=== PATIENT | female | born 1955 | race Caucasian/White ===

== ENCOUNTER 2024-03-06 15:17 | Inpatient (IN) | payer MEDICARE, OTHER ==
[~2024-03-06] VITALS: Ht 157.5 cm; Wt 71.7 kg
[2024-03-06 16:02] LABS: BASOPHILS # (AUTO) 0.2 K/uL (0.0-0.2); BASOPHILS % (AUTO) 1.2 % (0.0-2.0); EOSINOPHILS # (AUTO) 0.7 K/uL (0.0-0.7); EOSINOPHILS % (AUTO) 5.5 % (0.0-6.0); HEMATOCRIT 40 % (33-45); HEMOGLOBIN 13.3 g/dL (11.5-14.8); LYMPHOCYTES # (AUTO) 2.6 K/uL (0.8-4.8); LYMPHOCYTES % (AUTO) 19.7 % (20.0-44.0); MEAN CORPUSCULAR HEMOGLOBIN 30 PG (26.0-33.0); MEAN CORPUSCULAR HGB CONC 33 g/dl (31.0-36.0); MEAN CORPUSCULAR VOLUME 91 fL (82-100); MONOCYTES # (AUTO) 0.8 K/uL (0.1-1.30); MONOCYTES % (AUTO) 6.2 % (2.0-12.0); NEUTROPHILS # (AUTO) 8.7 K/uL (1.8-8.9); NEUTROPHILS % (AUTO) 67.4 % (43.0-81.0); PLATELET COUNT (AUTO) 438 K/uL (150-450); RED CELL DISTRIBUTION WIDTH 14.5 % (11.5-15.0)
[2024-03-06 16:18] LABS: ALANINE AMINOTRANSFERASE 19 U/L (12-78); ALBUMIN 3.2 g/dL (3.4-5.0); ALKALINE PHOSPHATASE 86 U/L (46-116); ASPARTATE AMINOTRANSFERASE 9 U/L (15-37); BILIRUBIN,DIRECT 0.1 mg/dL (0.0-0.2); BILIRUBIN,TOTAL 0.3 mg/dL (0.2-1.0); CARBON DIOXIDE 29 mmol/L (21-32); CHLORIDE 105 mmol/L (98-107); CREATININE 0.7 mg/dL (0.6-1.3); GLUCOSE 128 mg/dL (74-106); POTASSIUM 4.1 mmol/L (3.5-5.1); SODIUM SERUM 140 mmol/L (136-145); UREA NITROGEN, BLOOD 12 mg/dL (7-18)
[2024-03-06 16:19] LABS: INR 1.03 (0.91-1.10); PARTIAL THROMBOPLASTIN TIME 28.4 SEC (24.3-34.3); PROTHROMBIN TIME 10.9 SECS (9.2-11.1)
[2024-03-06 16:25] LABS: LACTIC ACID 2.2 mmol/L (0.4-2.0)
[2024-03-06] MEDS: IV NS 0.9% 1,000 ML BAG IV ONE (17:00)
[2024-03-06] MEDS ORDERED: INSU100I40 SQ ×2 (17:17)
[2024-03-06] MEDS ORDERED: BISA10SU11 RC (17:17)
[2024-03-06] MEDS ORDERED: PRAV20TA4 PO (17:17)
[2024-03-06] MEDS ORDERED: OXYC5TAB3 PO (17:17)
[2024-03-06] MEDS ORDERED: HYDR-4076 PO (17:17)
[2024-03-06] MEDS ORDERED: ACET-2030 PO (17:17)
[2024-03-06] MEDS ORDERED: BACL10TA PO (17:17)
[2024-03-06] MEDS ORDERED: CRAN250C PO (17:17)
[2024-03-06] MEDS ORDERED: CRAN500T3 PO (17:17)
[2024-03-06] MEDS ORDERED: LEVO100T PO (17:17)
[2024-03-06] MEDS ORDERED: MAGN400O6 PO (17:17)
[2024-03-06] MEDS ORDERED: DIPH28.34 TP (17:17)
[2024-03-06] MEDS ORDERED: DIPH25TA62 PO (17:17)
[2024-03-06] MEDS ORDERED: LEVO50TA PO (17:17)
[2024-03-06] MEDS ORDERED: ACET-868 PO (17:17)
[2024-03-06] MEDS ORDERED: METF-440 PO (17:17)
[2024-03-06] MEDS ORDERED: RILU50TA14 PO (17:17)
[2024-03-06] MEDS ORDERED: POLY17PO4 PO (17:17)
[2024-03-06] MEDS ORDERED: MELA3TAB41 PO (17:17)
[2024-03-06] MEDS ORDERED: DOCU100T2 PO (17:17)
[2024-03-06] MEDS ORDERED: CIPR500T5 PO (17:17)
[2024-03-06] MEDS ORDERED: LIDO30AD10 TP (17:17)
[2024-03-06] MEDS ORDERED: MIRT-90 PO (17:17)
[2024-03-06] MEDS ORDERED: DEXTROSE 50%-WATER 50 ML DISP.SYRIN IV PRN (17:30)
[2024-03-06] MEDS ORDERED: ONDANSETRON HCL/PF 4 MG/2 ML VIAL IVP PRN (17:30)
[2024-03-06] MEDS ORDERED: ACETAMINOPHEN 325 MG TABLET PO PRN (17:30)
[2024-03-06] MEDS ORDERED: hydrALAZINE HCL IV 20 MG VIAL IV PRN (17:30)
[2024-03-06] MEDS ORDERED: CEFEPIME 1 GM VIAL ONE ×3 (18:51→19:39)
[2024-03-06 19:03] LABS: APPEARANCE,URINE TURBID (CLEAR); BILIRUBIN,URINE NEGATIVE (NEGATIVE); BLOOD, URINE 3+ Ery/uL (NEGATIVE); COLOR,URINE YELLOW (YELLOW); KETONES,URINE NEGATIVE (NEGATIVE); LEUKOCYTE ESTERASE ,URINE 1+ (NEGATIVE); NITRITE, URINE NEGATIVE (NEGATIVE); PROTEIN,URINE 2+ mg/dl (NEGATIVE); UGLUCOSE NEGATIVE (NEGATIVE)
[2024-03-06 19:10] LABS: ADD URINE CULTURE YES; BACTERIA,URINE Few /HPF (None Seen); CALCIUM OXALATE CRYSTALS,UR Few /HPF (None Seen); RBC,URINE 21-50 /HPF (0-2); WBC,URINE 81-100 /HPF (0-3)
[2024-03-06] MEDS: CEFEPIME 1 GM in IV D5W 50 ML IV ONE (19:30)
[2024-03-06] MEDS: IV NS 0.9% 1,000 ML IV SCH (21:11)
[2024-03-06] MEDS: HEPARIN SODIUM, PORCINE 5000 UNITS/1 ML VIAL SQ SCH (21:31)
[2024-03-06] MEDS: BLOOD SUGAR DIAGNOSTIC 1 EACH STRIP VI SCH (21:38)
[2024-03-06] MEDS: ATORVASTATIN 10 MG TABLET PO SCH (22:49)
[2024-03-06] MEDS: *INSULIN REGULAR(HUMULIN R)HUM 100 UNIT/ML VIAL SQ PRN (23:06)
[2024-03-07 04:00] VITALS: BP 138/74; TEMP 97; O2SAT 97
[2024-03-07] MEDS: INSULIN REGULAR, HUMAN 100 UNIT/ML 3 ML VIAL SQ PRN (05:52)
[2024-03-07 07:13] LABS: BASOPHILS % (AUTO) 0.2 % (0.0-2.0); EOSINOPHILS # (AUTO) 0.6 K/uL (0.0-0.7); EOSINOPHILS % (AUTO) 6.7 % (0.0-6.0); HEMATOCRIT 36 % (33-45); HEMOGLOBIN 12.1 g/dL (11.5-14.8); LYMPHOCYTES # (AUTO) 2.3 K/uL (0.8-4.8); LYMPHOCYTES % (AUTO) 26.5 % (20.0-44.0); MEAN CORPUSCULAR HEMOGLOBIN 30 PG (26.0-33.0); MEAN CORPUSCULAR HGB CONC 33 g/dl (31.0-36.0); MEAN CORPUSCULAR VOLUME 90 fL (82-100); MONOCYTES # (AUTO) 0.5 K/uL (0.1-1.30); MONOCYTES % (AUTO) 6.1 % (2.0-12.0); NEUTROPHILS # (AUTO) 5.2 K/uL (1.8-8.9); NEUTROPHILS % (AUTO) 60.5 % (43.0-81.0); PLATELET COUNT (AUTO) 366 K/uL (150-450); RED BLOOD CELL COUNT(AUTO) 4.02 MIL/uL (4.0-5.2); RED CELL DISTRIBUTION WIDTH 14.7 % (11.5-15.0); WHITE BLOOD COUNT (AUTO) 8.6 K/uL (4.3-11.0)
[2024-03-07] MEDS: LEVOTHYROXINE SODIUM 100 MCG TABLET PO SCH (07:29)
[2024-03-07 07:37] LABS: ALBUMIN 2.8 g/dL (3.4-5.0); BILIRUBIN,TOTAL 0.3 mg/dL (0.2-1.0); CALCIUM, SERUM 8.7 mg/dL (8.5-10.1); CREATININE 0.4 mg/dL (0.6-1.3); MAGNESIUM 1.9 mg/dL (1.8-2.4); PHOSPHORUS 3.5 mg/dL (2.5-4.9); POTASSIUM 3.3 mmol/L (3.5-5.1); TOTAL PROTEIN, SERUM 5.8 g/dL (6.4-8.2)
[2024-03-07] MEDS: CEFTRIAXONE 1 G in IV D5W 50 ML IV SCH (09:15)
[2024-03-07] MEDS: POLYETHYLENE GLYCOL 3350 17 GM POWD.PACK PO SCH (09:47)
[2024-03-07] MEDS: DOCUSATE SODIUM LIQ 100 MG/10 ML UDC PO SCH (09:47)
[2024-03-07] MEDS: BACLOFEN (10 MG) 10 MG TABLET PO SCH (09:48)
[2024-03-07] MEDS: POTASSIUM CHLORIDE 20 MEQ TAB.PRT.SR PO ONE (12:41)
[2024-03-08] MEDS: MORPHINE SULFATE INJ 2 MG/ML DISP.SYRIN IV PRN
[2024-03-08 08:00] VITALS: BP 128/80; TEMP 97.7; O2SAT 97
[2024-03-08] MEDS: IV NS 0.9% 250 ML IV PRN (09:37)
[2024-03-08] MEDS: LIDOCAINE 5% (PATCH) 1 EA PATCH TP SCH (10:46)
[2024-03-08 20:00] VITALS: BP 134/97; TEMP 98; O2SAT 97
[2024-03-09 04:00] VITALS: BP 134/81; TEMP 98.2; O2SAT 95
[2024-03-09 10:05] LABS: CALCIUM, SERUM 8.9 mg/dL (8.5-10.1); CREATININE 0.6 mg/dL (0.6-1.3); POTASSIUM 3.3 mmol/L (3.5-5.1)
[2024-03-09 12:00] VITALS: BP 134/81; TEMP 98.2; O2SAT 95
[2024-03-09] MEDS: POTASSIUM CHLORIDE 20 MEQ POWDER PACKET PO ONE (12:34)
[2024-03-09] MEDS ORDERED: POTASSIUM CHLORIDE 20 MEQ TAB.PRT.SR PO ONE (13:00)
[2024-03-09] MEDS: diphenhydrAMINE HCL/ZINC ACET CREAM 28.3 GM TUBE TP PRN (15:07)
[2024-03-09 20:00] VITALS: BP 143/96; TEMP 99.2; O2SAT 99
[2024-03-10 04:00] VITALS: BP 127/85; TEMP 98.8; O2SAT 96
[2024-03-10] MEDS: CEFTRIAXONE 1 G in IV D5W 50 ML IV STA (08:33)
[2024-03-10 09:58] LABS: CALCIUM, SERUM 9.1 mg/dL (8.5-10.1); POTASSIUM 3.5 mmol/L (3.5-5.1)
[2024-03-10 10:04] LABS: CREATININE 0.6 mg/dL (0.6-1.3)
== END 2024-03-10 14:20 | DRG 698 ==
LOC: ER 15:20 → MEDSG1 20:01
PROVIDERS: ADMIT Internal Medicine; ATTEND Internal Medicine
DX: T83.511A Infection and inflammatory reaction due to indwelling urethral catheter, initial encounter (principal); G93.41 Metabolic encephalopathy; R53.2 Functional quadriplegia; E44.1 Mild protein-calorie malnutrition; E87.20 Acidosis, unspecified; N39.0 Urinary tract infection, site not specified; Z88.5 Allergy status to narcotic agent; E11.9 Type 2 diabetes mellitus without complications; I10 Essential (primary) hypertension; E03.9 Hypothyroidism, unspecified; E78.5 Hyperlipidemia, unspecified; E88.09 Other disorders of plasma-protein metabolism, not elsewhere classified; B96.89 Other specified bacterial agents as the cause of diseases classified elsewhere; Z79.4 Long term (current) use of insulin; Z79.890 Hormone replacement therapy; Z79.899 Other long term (current) drug therapy; Y84.6 Urinary catheterization as the cause of abnormal reaction of the patient, or of later complication, without mention of misadventure at the time of the procedure; Y92.129 Unspecified place in nursing home as the place of occurrence of the external cause
CPT/HCPCS: 36415; 71045-TC; 80048-TC; 80053-TC; 80076-TC; 81001; 82962-TC; 83605-TC; 83735-TC; 84100-TC; 84484-TC; 85025-TC; 85730-TC; 87040-TC; 87081-TC; 87086-TC; A4223; G0378; J0692; J0696; J1644; J1815; J2270; J7030; J7040; J7050; J7060